=== PATIENT | female | born 1995 | race Hispanic/Latino ===

== ENCOUNTER 2021-03-06 15:29 | Outpatient (CLI) | payer BC | END 2021-03-06 15:30 | disposition home or self-care (01) | LOC: CSHRAD 15:29 | PROVIDERS: ATTEND Family Medicine Sports Medicine | DX: M79.671 Pain in right foot (principal) ==

== ENCOUNTER 2022-03-19 20:26 | Emergency (ER) | payer BC, OTHER ==
[2022-03-19] MEDS ORDERED: Ketorolac Tromethamine 30 MG/ML VIAL ONE (21:34)
== END 2022-03-19 23:09 | disposition home or self-care (01) ==
LOC: CSHERS 20:26
DX: S30.0XXA Contusion of lower back and pelvis, initial encounter (principal); S10.93XA Contusion of unspecified part of neck, initial encounter; V89.2XXA Person injured in unspecified motor-vehicle accident, traffic, initial encounter
CPT/HCPCS: 72040; 72100; 96372; J1885